=== PATIENT | male | born 1990 | race Two or more races ===

== ENCOUNTER 2018-03-18 17:11 | Inpatient (IN) | payer OTHER ==
[~2018-03-18] VITALS: Ht 172.7 cm; Wt 49.8 kg
[2018-03-18] MEDS ORDERED: SODIUM CHLORIDE 0.9% 500 ML IV ONE (17:56)
[2018-03-18] MEDS: methylPREDNISolone SOD SUCC 125 MG/2 ML VL IV ONE ×2 (18:24→18:29)
[2018-03-18] MEDS ORDERED: MORPHINE SULFATE 4 MG/ML SYR/VIAL IV PRN (18:30)
[2018-03-18] MEDS ORDERED: ACETAMINOPHEN 500 MG TAB PO PRN (18:30)
[2018-03-18] MEDS ORDERED: LORazepam 0.5 MG TAB PO PRN (18:30)
[2018-03-18] MEDS ORDERED: HYDROCORTISONE SOD SUCC 100 MG/2ML INJ VIAL IV ONE (18:30)
[2018-03-18] MEDS ORDERED: HYDROcodone-ACET 5/325MG TAB PO PRN (18:30)
[2018-03-18] MEDS ORDERED: NITROGLYCERIN 0.4 MG SL TAB SL PRN (18:30)
[2018-03-18] MEDS: metroNIDAZOLE 500MG/100ML 100 ML IV SCH (18:30)
[2018-03-18] MEDS ORDERED: TEMAZEPAM 15 MG CAP PO PRN (18:30)
[2018-03-18] MEDS: cefTRIAXone 1GM/50ML D5W 50 ML IV ONE ×2 (18:33→18:38)
[2018-03-18 18:51] LABS: Basophils # (auto) 0 uL; Eosinophils # (auto) 0 uL; Hemoglobin 9.6 g/dL (13.5-17.5); Lymphocytes # (auto) 0.4 uL; Monocytes # (auto) 0.4 uL; Neutrophils # (auto) 6.5 uL; White Blood Cell 7.4 10^3/uL (4.4-10.8)
[2018-03-18 18:52] LABS: Basophils % (auto) 0.1 % (0.0-2.0); Eosinophils % (auto) 0.1 % (0.0-7.0); Hematocrit 29.2 % (41.0-53.0); Lymphocytes % (auto) 6.1 % (10.0-50.0); Mean Corpuscular Hemoglobin 26.4 pg (28.0-32.0); Mean Corpuscular Hgb Conc. 32.9 g/dL (32.0-36.0); Mean Corpuscular Volume 80.1 fL (80.0-100.0); Monocytes % (auto) 5.9 % (0.0-12.0); Neutrophils % (auto) 87.8 % (37.0-80.0); Platelet Count (auto) 559 10^3/uL (140-450); Red Blood Cells 3.65 10^6/uL (4.5-5.90); Red Cell Distribution Width 15.3 % (11.8-14.3)
[2018-03-18 18:55] LABS: Alanine Aminotransferase 237 U/L (16-61); Albumin 1.6 g/dL (3.4-5.0); Anion Gap 7 (5-15); Aspartate Aminotransferase 85 U/L (15-37); Blood Urea Nitrogen 9 mg/dL (7-18); Calcium 7.1 mg/dL (8.5-10.1); Carbon Dioxide 27 mmol/L (21-32); Chloride 100 mmol/L (98-107); GFR African American 261 mL/min; GFR Non-African American 215 mL/min; Glucose 110 mg/dL (74-106); Magnesium 2.2 mg/dL (1.6-2.6); Potassium 4.7 mmol/L (3.5-5.1); Sodium 134 mmol/L (136-145)
[2018-03-18] MEDS ORDERED: IOHEXOL 300 MG/ML 100ML BOTTLE IJ ONE (18:55)
[2018-03-18] MEDS: SODIUM CHLORIDE 0.9% 1,000 ML IV SCH (18:59)
[2018-03-18 19:00] LABS: Alkaline Phosphatase 148 U/L (45-117); Bilirubin, Total 0.1 mg/dL (0.2-1.0); Total Protein 5.8 g/dL (6.4-8.2)
[2018-03-18] MEDS: FAMOTIDINE (10MG/ML) 2ML VL IV SCH (19:01)
[2018-03-18 19:10] LABS: CRP High Sensitivity 7.11 mg/dL (< 0.3)
[2018-03-18 19:11] LABS: Urine Bacteria NONE SEEN /hpf (None Seen); Urine Blood Negative /uL (Negative); Urine Mucus FEW (None Seen); Urine Specific Gravity 1.019 (1.001-1.035); Urine WBC <1 /hpf (0 - 3)
--- NOTE | 2018-03-18 19:45 | NUR ---
Telemetry admit from ER [facility] admitted to Telemetry unit after SBAR received. Patient oriented to MAG MONTEZ, primary RN, unit, room, bed, and unit policies regarding patient care and visiting hours. Patient now on continuous telemetry monitoring, tele box # 14 and telemetry reading on arrival to unit is SR in the 80's. Patient weighed by bedscale and encouraged to call if they need something. All questions and concerns addressed, patient verbalized understanding.
[2018-03-18 21:00] VITALS: BP 110/61
[2018-03-18 21:04] LABS: INR 1.03 (0.9-1.15); Partial Thromboplastin Time 27.8 sec (23.78-33.04)
[2018-03-18] MEDS: MORPHINE SULFATE 4 MG/ML SYR/VIAL IV PRN (21:16)
[2018-03-18 22:00] VITALS: BP 110/61
--- NOTE | 2018-03-18 22:00 | NUR ---
Patient refusing Flagyl medication Wants to talk to doctor first, patient reports abdominal pain and getting sick after taking it.
[2018-03-19 01:11] LABS: Hematocrit 25.9 % (41.0-53.0); Hemoglobin 8.7 g/dL (13.5-17.5)
[2018-03-19] MEDS: MORPHINE SULFATE 4 MG/ML SYR/VIAL IV PRN ×5 (01:39→21:02)
[2018-03-19 05:00] VITALS: BP 98/57
[2018-03-19] MEDS ORDERED: PRE1T PO (05:29)
[2018-03-19] MEDS ORDERED: MESA1.2T PO (05:29)
[2018-03-19] MEDS: SODIUM CHLORIDE 0.9% 1,000 ML IV SCH ×2 (05:32→16:38)
[2018-03-19] MEDS: metroNIDAZOLE 500MG/100ML 100 ML IV SCH ×5 (05:33→22:53)
[2018-03-19 05:53] LABS: Hematocrit 25.7 % (41.0-53.0); Hemoglobin 8.6 g/dL (13.5-17.5)
[2018-03-19] MEDS: FAMOTIDINE (10MG/ML) 2ML VL IV SCH ×2 (07:22→18:41)
[2018-03-19] MEDS: HYDROCORTISONE SOD SUCC 100 MG/2ML INJ VIAL IV SCH ×3 (07:23→23:21)
--- NOTE | 2018-03-19 07:45 | NUR ---
OPENING NOTE Assumed care of patient from NOC RNJj. Patient awake and alert with no S/S of distress/SOB or pain. Instructed on POC and to call for assist PRN, verbalized understanding. Bed in lowest, locked position with side rails up x2 and call light within reach. Will continue to monitor for changes Q1hr and PRN.
[2018-03-19] MEDS ORDERED: VANCOMYCIN PER PHARMACY 0 MG IV SCH (08:30)
[2018-03-19 09:00] VITALS: BP 107/62
[2018-03-19] MEDS ORDERED: VANCOMYCIN 1GM/250ML 250 ML IV SCH (09:00)
[2018-03-19] MEDS ORDERED: LEVOFLOXACIN 750MG 150 ML IV ONE (10:15)
[2018-03-19 12:30] LABS: Hemoglobin 8.4 g/dL (13.5-17.5)
[2018-03-19 12:32] LABS: Hematocrit 25.6 % (41.0-53.0)
[2018-03-19 13:00] VITALS: BP 105/70
[2018-03-19] MEDS ORDERED: TPN PER PHARMACY 0 ML IV SCH (13:30)
[2018-03-19 14:09] LABS: Phosphorus 3.7 mg/dL (2.5-4.90); Pre Albumin 8.8 mg/dL (20.0-40.0)
[2018-03-19 17:00] VITALS: BP 111/52
[2018-03-19] MEDS ORDERED: cefTRIAXone 1GM/50ML D5W 50 ML IV SCH (18:00)
--- NOTE | 2018-03-19 19:15 | NUR ---
CLOSING NOTE Endorsed care of patient to NOC RNJj.
--- NOTE | 2018-03-19 19:30 | NUR ---
Opening Shift Note Assumed care of patient, awake and alert X4. Resting in bed, respirations even and unlabored at this time. Reports still has some coughing. No S/S of distress/SOB on room air. Denies the need for pain medication at this time. Bed locked in lowest position call light within reach. Instructed on POC and to call for assist PRN, will continue to monitor for changes PRN.
--- NOTE | 2018-03-19 19:45 | NUR ---
Second IV insertion started for Clinimix order IV access obtained, via clean sterile technique by inserting 20 gauge catheter at right upper arm after 2 attempts. IV secured properly. No trauma to site. Patient tolerated well.
[2018-03-19] MEDS ORDERED: DEXTROSE (50%) 50ML SYRG IV SCH (20:00)
--- NOTE | 2018-03-19 20:40 | NUR ---
Incentive Spirometer, (IS) Provided IS to patient. Educated on reason, use and frequency of IS. Patient verbalized understanding. Return demonstration.
[2018-03-19] MEDS: CLINIMIX PER PHARMACY IV NR (20:44)
[2018-03-19] MEDS: ACCU-CHEK COMFORT CURVE STRIP VI SCH (20:44)
[2018-03-19] MEDS: InsuLIN REG 1unit/0.01ml Soln (100units/ml) SC SCH (20:45)
[2018-03-19 21:59] VITALS: BP 100/58
[2018-03-20] MEDS: ACCU-CHEK COMFORT CURVE STRIP VI SCH ×4 (00:03→18:37)
[2018-03-20] MEDS: SODIUM CHLORIDE 0.9% 1,000 ML IV SCH ×3 (00:04→21:32)
--- NOTE | 2018-03-20 04:37 | NUR ---
ROUNDS PATIENT SLEEPING IN BED RESPIRATIONS EVEN AND UNLABORED, NO S/S OF SOB OR DISTRESS. CONTINUOS TELE MONITOR REMAINS ON PATIENT. WILL CONTINUE TO MONITOR.
[2018-03-20 05:00] VITALS: BP 94/50
[2018-03-20] MEDS: metroNIDAZOLE 500MG/100ML 100 ML IV SCH (05:45)
[2018-03-20 06:07] LABS: Basophils # (auto) 0 uL; Basophils % (auto) 0.1 % (0.0-2.0); Eosinophils # (auto) 0 uL; Hematocrit 23.8 % (41.0-53.0); Hemoglobin 8.2 g/dL (13.5-17.5); Lymphocytes # (auto) 0.7 uL; Mean Corpuscular Hemoglobin 27.2 pg (28.0-32.0); Mean Corpuscular Hgb Conc. 34.4 g/dL (32.0-36.0); Monocytes # (auto) 0.3 uL; Monocytes % (auto) 4.2 % (0.0-12.0); Neutrophils # (auto) 5.9 uL; Neutrophils % (auto) 85.7 % (37.0-80.0); Platelet Count (auto) 444 10^3/uL (140-450); Red Blood Cells 3.01 10^6/uL (4.5-5.90); Red Cell Distribution Width 15.3 % (11.8-14.3); White Blood Cell 6.8 10^3/uL (4.4-10.8)
[2018-03-20 06:23] LABS: Albumin 1.3 g/dL (3.4-5.0); Calcium 7.3 mg/dL (8.5-10.1); Magnesium 1.9 mg/dL (1.6-2.6); Potassium 3.3 mmol/L (3.5-5.1)
[2018-03-20 06:26] LABS: BUN/Creatinine Ratio 9.5; Bilirubin, Total 0.2 mg/dL (0.2-1.0); Total Protein 4.5 g/dL (6.4-8.2)
[2018-03-20] MEDS: HYDROCORTISONE SOD SUCC 100 MG/2ML INJ VIAL IV SCH ×3 (06:54→21:32)
[2018-03-20] MEDS: InsuLIN REG 1unit/0.01ml Soln (100units/ml) SC SCH ×4 (06:54→18:37)
[2018-03-20] MEDS: FAMOTIDINE (10MG/ML) 2ML VL IV SCH ×2 (07:04→18:37)
--- NOTE | 2018-03-20 07:16 | NUR ---
Dr. Paez (GI) at bedside Orders received, read back and verified, PPD Also requesting medical records from [facility]
[2018-03-20 07:34] VITALS: BP 90/48
[2018-03-20] MEDS ORDERED: TUBERCULIN PPD 5 UNIT/0.1 ML ID ONE (07:45)
--- NOTE | 2018-03-20 10:06 | NUR ---
MEDICAL RECORDS Left message for [facility]'s medical record department in an effort to obtain fax #.
[2018-03-20] MEDS: LEVOFLOXACIN 500MG 100 ML IV SCH (10:40)
[2018-03-20 11:33] VITALS: BP 93/53
--- NOTE | 2018-03-20 12:42 | NUR ---
MEDICAL RECORDS Left another message for [facility]'s medical records department. Still awaiting call back.
--- NOTE | 2018-03-20 13:10 | NUR ---
TELE Tele D/C'd per order. Returned monitor to [facility].
--- NOTE | 2018-03-20 14:10 | NUR ---
FORM FAXED Medical records release form faxed to [facility].
--- NOTE | 2018-03-20 14:23 | NUR ---
PPD Tuberculin administered,left forearm, per order.
--- NOTE | 2018-03-20 14:37 | NUR ---
Nutrition consult/assessment Notes please see attached link for complete assessment Est. Needs based on IBW (70 kg): 0890-9166 kcal (25-30 kcal/kgBW), 70-98 gms pro (1.0-1.4 gms/kgBW severe hypoalb). Will continue to monitor pertinent labs and reassess nutrient need prn Addendum: 03/20/18 at [address] Amended: Links added.
[2018-03-20] MEDS ORDERED: POTASSIUM CHL 20MEQ/100ML 100 ML IV ONE (15:15)
[2018-03-20 16:40] VITALS: BP 102/63
[2018-03-20] MEDS: MORPHINE SULFATE 4 MG/ML SYR/VIAL IV PRN (18:38)
--- NOTE | 2018-03-20 19:15 | NUR ---
CLOSING NOTE Endorsed care of patient to NOC RNJj.
--- NOTE | 2018-03-20 19:30 | NUR ---
Opening Shift Note Assumed care of patient, awake and alert X4. Resting in bed, family at bedside. Respirations even and unlabored at this time. No S/S of distress/SOB on room air. Denies the need for pain medication at this time. Bed locked in lowest position call light within reach. Instructed on POC and to call for assist PRN, will continue to monitor for changes PRN.
[2018-03-20] MEDS ORDERED: PPN PER PHARMACY IV NR ×6 (20:00)
--- NOTE | 2018-03-20 20:00 | NUR ---
PATIENT REQUESTING TO TAKE SHOWER WRAPPED BOTH IV SITES, PROVIDED SHOWER CHAIR BATHROOM LINEN AND TOILETRIES. COMPLETE LINEN CHANGE.
--- NOTE | 2018-03-20 20:00 | NUR ---
RE: PPD not reaction noted at this time will continue to monitor. Administered on 03/20/18 at 1423 to left FA.
[2018-03-20 22:00] VITALS: BP 102/56
[2018-03-20] MEDS: CLINIMIX PER PHARMACY IV NR (22:27)
[2018-03-21] VITALS (7 sets, daily range): BP systolic 93–108; BP diastolic 49–67
[2018-03-21] MEDS: ACCU-CHEK COMFORT CURVE STRIP VI SCH ×5 (00:17→23:29)
[2018-03-21] MEDS: SODIUM CHLORIDE 0.9% 1,000 ML IV SCH ×2 (03:37→16:17)
[2018-03-21] MEDS: InsuLIN REG 1unit/0.01ml Soln (100units/ml) SC SCH ×5 (06:00→23:30)
[2018-03-21] MEDS: FAMOTIDINE (10MG/ML) 2ML VL IV SCH ×2 (06:16→18:13)
[2018-03-21] MEDS: HYDROCORTISONE SOD SUCC 100 MG/2ML INJ VIAL IV SCH ×3 (06:16→21:50)
[2018-03-21 06:49] LABS: Basophils # (auto) 0 uL; Eosinophils # (auto) 0 uL; Hemoglobin 7.9 g/dL (13.5-17.5); Lymphocytes # (auto) 0.8 uL; Lymphocytes % (auto) 11.8 % (10.0-50.0); Mean Corpuscular Volume 79.5 fL (80.0-100.0); Monocytes # (auto) 0.4 uL; Red Blood Cells 2.95 10^6/uL (4.5-5.90)
[2018-03-21 06:54] LABS: Eosinophils % (auto) 0.1 % (0.0-7.0); Hematocrit 23.5 % (41.0-53.0); Mean Corpuscular Hemoglobin 26.9 pg (28.0-32.0); Mean Corpuscular Hgb Conc. 33.8 g/dL (32.0-36.0); Monocytes % (auto) 6.1 % (0.0-12.0); Neutrophils # (auto) 5.4 uL; Platelet Count (auto) 409 10^3/uL (140-450); Red Cell Distribution Width 15.4 % (11.8-14.3); White Blood Cell 6.6 10^3/uL (4.4-10.8)
[2018-03-21 07:11] LABS: Albumin 1.2 g/dL (3.4-5.0); Calcium 7.5 mg/dL (8.5-10.1); Magnesium 2.1 mg/dL (1.6-2.6); Potassium 3.3 mmol/L (3.5-5.1)
[2018-03-21 07:14] LABS: BUN/Creatinine Ratio 18.8; Bilirubin, Total 0.1 mg/dL (0.2-1.0); Phosphorus 2.8 mg/dL (2.5-4.90); Total Protein 4.3 g/dL (6.4-8.2)
--- NOTE | 2018-03-21 07:30 | NUR ---
Opening Shift Note Assumed care of patient, awake and alert. No S/S of distress/SOB or pain. Instructed on POC and to call for assist PRN, will continue to monitor for changes Q1hr and PRN. Bed locked in lowest position with two side rails up and call light in reach.
[2018-03-21] MEDS: LEVOFLOXACIN 500MG 100 ML IV SCH (09:59)
[2018-03-21 10:02] LABS: Hepatitis B Surface Antibody Negative
[2018-03-21 10:28] LABS: Hepatitis A Total Antibody Positive
[2018-03-21] MEDS ORDERED: POTASSIUM CHL 20 Meq TABLET PO ONE (10:45)
[2018-03-21] MEDS: POTASSIUM CHL 20MEQ/100ML 100 ML IV SCH ×2 (12:13→15:03)
[2018-03-21 12:48] LABS: Hepatitis C Antibody Negative (Negative)
[2018-03-21 12:55] LABS: Hepatitis B Core Total AB Negative
[2018-03-21 13:03] LABS: Hepatitis B Surface Antigen Negative (Negative)
[2018-03-21 14:03] LABS: Hepatitis B Core IgM Negative
[2018-03-21 14:04] LABS: Hepatitis A Ab IgM Negative
[2018-03-21] MEDS: MORPHINE SULFATE 4 MG/ML SYR/VIAL IV PRN ×2 (15:43→21:00)
--- NOTE | 2018-03-21 17:18 | NUR ---
DR CHIQUITA WAYNE
--- NOTE | 2018-03-21 19:15 | NUR ---
Opening Shift Note Received report from Freda CONNORS. Assumed care of patient, awake and alert, family at bedside. No S/S of distress/SOB or pain. Instructed on POC and to call for assist PRN, will continue to monitor for changes Q1hr and PRN.
[2018-03-21] MEDS ORDERED: PPN PER PHARMACY IV NR ×8 (20:00)
[2018-03-22] MEDS: SODIUM CHLORIDE 0.9% 1,000 ML IV SCH ×2 (02:34→11:15)
[2018-03-22 05:25] VITALS: BP 94/48
[2018-03-22] MEDS: ACCU-CHEK COMFORT CURVE STRIP VI SCH ×4 (06:11→23:50)
[2018-03-22] MEDS: FAMOTIDINE (10MG/ML) 2ML VL IV SCH (06:11)
[2018-03-22] MEDS: InsuLIN REG 1unit/0.01ml Soln (100units/ml) SC SCH ×4 (06:11→23:51)
[2018-03-22 06:59] LABS: Albumin 1.2 g/dL (3.4-5.0); BUN/Creatinine Ratio 16.7; Calcium 7.1 mg/dL (8.5-10.1); Magnesium 2.3 mg/dL (1.6-2.6); Potassium 3.3 mmol/L (3.5-5.1)
[2018-03-22 07:01] LABS: Bilirubin, Total 0.1 mg/dL (0.2-1.0); Phosphorus 2.4 mg/dL (2.5-4.90); Total Protein 4.3 g/dL (6.4-8.2)
--- NOTE | 2018-03-22 07:15 | NUR ---
Opening Shift Note Report and assumed care of patient, asleep but easily arousable ,awake and alert. in bed,No S/S of distress/SOB or pain. Instructed on POC, call light within reach and to call for assist PRN, will continue to monitor for changes Q1hr and PRN.
[2018-03-22 08:00] VITALS: BP 101/65
[2018-03-22] MEDS ORDERED: POTASSIUM PHOSPHATE 44 MEQ in D5W 5% 250 ML IV ONE (08:15)
--- NOTE | 2018-03-22 10:05 | NUR ---
STOOL SPECIMEN FOR STOOL OB SENT TO LAB
[2018-03-22] MEDS: LEVOFLOXACIN 500MG 100 ML IV SCH (10:09)
[2018-03-22] MEDS: predniSONE 20 MG TAB PO SCH (10:10)
--- NOTE | 2018-03-22 10:30 | NUR ---
C/O PAIN TO RIGHT UPPER ARM IV SITE,IV DISCONTINUED STARTED g#20 TO LEFT ARM
--- NOTE | 2018-03-22 11:00 | NUR ---
MD VISIT DR. CHAUDHRY HERE TO SEE AND EXAMINED PATIENT,SPOKE TO PATIENT AND FAMILY RE PLAN OF CARE
[2018-03-22] MEDS: MORPHINE SULFATE 4 MG/ML SYR/VIAL IV PRN ×2 (11:55→20:14)
[2018-03-22 12:00] VITALS: BP 101/65
[2018-03-22 16:55] VITALS: BP 100/53
--- NOTE | 2018-03-22 17:00 | NUR ---
NO DISTRESS NO DISCOMFORT
--- NOTE | 2018-03-22 19:06 | NUR ---
REPORT GIVEN TO MIKEL LYNN SHIFT RN,STATUS UNCHANGED NO DISTRESS
--- NOTE | 2018-03-22 19:15 | NUR ---
Opening Shift Note Received report from Yael CONNORS. Assumed care of patient, awake and alert. No S/S of distress/SOB or pain. Instructed on POC and to call for assist PRN, will continue to monitor for changes Q1hr and PRN.
[2018-03-22 20:00] VITALS: BP 100/57
[2018-03-22] MEDS ORDERED: PPN PER PHARMACY IV NR ×9 (20:00)
[2018-03-22] MEDS: FAMOTIDINE 20 MG TAB PO SCH (21:52)
[2018-03-22 22:07] VITALS: BP 100/57
[2018-03-23] MEDS: MORPHINE SULFATE 4 MG/ML SYR/VIAL IV PRN ×3 (00:27→20:49)
[2018-03-23] MEDS: SODIUM CHLORIDE 0.9% 1,000 ML IV SCH ×2 (04:12→20:50)
[2018-03-23 04:30] VITALS: BP 95/54
--- NOTE | 2018-03-23 04:30 | NUR ---
Patient request for pain shot, RN explained that the blood pressure is low so will held the medication for now, patient verbalized understanding. Will continue care.
[2018-03-23] MEDS: ACCU-CHEK COMFORT CURVE STRIP VI SCH ×4 (05:59→23:49)
[2018-03-23] MEDS: InsuLIN REG 1unit/0.01ml Soln (100units/ml) SC SCH ×4 (05:59→23:50)
--- NOTE | 2018-03-23 06:30 | NUR ---
Per patient he had a total of 9 bowel movement overnight which is formed. Patient showed to the RN the 6th BM, RN noted blood in the stool but the rest is normal according to the patient.
[2018-03-23 07:04] LABS: Basophils # (auto) 0 uL; Eosinophils # (auto) 0 uL; Eosinophils % (auto) 0.1 % (0.0-7.0); Hematocrit 25.9 % (41.0-53.0); Hemoglobin 8.7 g/dL (13.5-17.5); Lymphocytes # (auto) 1.4 uL; Lymphocytes % (auto) 19.3 % (10.0-50.0); Mean Corpuscular Hgb Conc. 33.6 g/dL (32.0-36.0); Mean Corpuscular Volume 80.5 fL (80.0-100.0); Monocytes # (auto) 0.6 uL; Monocytes % (auto) 7.9 % (0.0-12.0); Neutrophils # (auto) 5.4 uL; Neutrophils % (auto) 72.7 % (37.0-80.0); Platelet Count (auto) 411 10^3/uL (140-450); Red Blood Cells 3.22 10^6/uL (4.5-5.90); Red Cell Distribution Width 15.5 % (11.8-14.3); White Blood Cell 7.4 10^3/uL (4.4-10.8)
--- NOTE | 2018-03-23 07:15 | NUR ---
Care endorsed to Paulina CONNORS.
[2018-03-23 07:20] LABS: Potassium 3.4 mmol/L (3.5-5.1)
[2018-03-23 07:28] LABS: Albumin 1.3 g/dL (3.4-5.0); BUN/Creatinine Ratio 22.2; Bilirubin, Total 0.2 mg/dL (0.2-1.0); Calcium 7.3 mg/dL (8.5-10.1); Magnesium 2.3 mg/dL (1.6-2.6); Phosphorus 2.2 mg/dL (2.5-4.90); Total Protein 4.6 g/dL (6.4-8.2)
[2018-03-23 08:48] VITALS: BP 101/63
[2018-03-23] MEDS: predniSONE 20 MG TAB PO SCH (09:05)
[2018-03-23] MEDS: LEVOFLOXACIN 500MG 100 ML IV SCH (09:05)
[2018-03-23] MEDS: FAMOTIDINE 20 MG TAB PO SCH ×2 (09:06→21:45)
[2018-03-23] MEDS ORDERED: POTASSIUM PHOSP 22MEQ(15MMOLE) in NS 100 ML IV ONE (10:00)
[2018-03-23] MEDS ORDERED: POTASSIUM CHL 20 Meq TABLET PO ONE (11:45)
[2018-03-23 12:26] VITALS: BP 100/61
--- NOTE | 2018-03-23 13:00 | NUR ---
Nutrition Follow-up Notes Wt.: 54.0 kg as of yesterday. Pt denies any discomfort when rounded this morning. 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 Pt's currently on Regular diet with adequate PO intake aeb 85% ave. consumed meals (x6) in last 2.5 days. Pt's also on PN support @ 67 ml/hr providing 756 kcal, 70 gms pro and 476 NPCs. Pt with inadequate PN support d/t mod initiation rate delivery of less concentrated formula aeb current PN infusion meets 36% to 43% of est caloric needs and 71% to 100% of est protein needs. Discussed importance/benefits of PN support r/t his medical condition and he verbalized understanding. Noted pt's to receive tonight another PPN @ same rate and nutrient concentration. Est. Needs based on IBW (70 kg): 7025-8531 kcal (25-30 kcal/kgBW), 70-98 gms pro (1.0-1.4 gms/kgBW severe hypoalb). Will continue to monitor pertinent labs and reassess nutrient need prn Labs: K 3.4 L, BUN 6 L, Cr 0.27 L, Ca 7.3 L, Phos 2.2 L, AST 38 H, ALT 147 H, Tpro 4.6 L, Alb 1.3 L; Prealb 8.8 L, Trig 60 wnl Skin: Luisito scale 19, low risk, skin intact per massage coordinator. GI: Pt had 2x BM this morning per massage coordinator. PES: Increased nutrient needs r/t altered GI functions aeb with GI bleed, on CLD and PN with wt loss Altered nutrition related lab values r/t current/chronic medical condition aeb hyperglycemia, seevre hypoalb Will continue to monitor PO intake, PN tolerance, skin status, pertinent labs and weight trend. F/u in 2 to 3 days. Rec.: 1.) If LFTs continue trending up, consider Soft Low Fat diet. 2.) Continue close supervision during meals. 3.) If pt's PO intake consistently adequate (>75%), consider gradual tapering down of PN support if medically appropriate. 4.) Refer pt to RD for further nutrition education and weight monitoring upon discharge. 5.) Continue current plan of care.
--- NOTE | 2018-03-23 14:20 | NUR ---
STEPHANIE PHELPS SPOKE WITH THE PHARMACIST, TO VERIFY IF THE PHARMACY CARRY IT, SAID THAT IT COMES ON A BOTTLE FORM, AND HE WILL SEND IT LATER ON.
[2018-03-23] MEDS: CHOLESTYRAMINE 4 GM POWDER GT SCH ×2 (14:33→22:55)
--- NOTE | 2018-03-23 14:34 | NUR ---
PT ON PAIN MANAGEMENT NEEDED, CONTINUE MONITORING.
[2018-03-23 17:17] VITALS: BP 93/57
--- NOTE | 2018-03-23 18:15 | NUR ---
LOOSE BM PT HAS A TOTAL OF 8, CONTINUE MONITORING.
--- NOTE | 2018-03-23 19:35 | NUR ---
Opening Shift Note Assumed care of patient, awake and alert oriented x4. No S/S of distress/SOB noted. Bed is in lowest locked position with bed rails up x2 and call light is within reach of the patient. Instructed on POC and to call for assist PRN.
[2018-03-23] MEDS ORDERED: PPN PER PHARMACY IV NR ×9 (20:00)
[2018-03-23 21:31] VITALS: BP 104/61
[2018-03-23] MEDS: MESALAMINE 4 GM/60 ML RC PR SCH (21:46)
--- NOTE | 2018-03-23 22:00 | NUR ---
Rowasa Enema; Patient refused: Patient refused Rowasa enema at this time. Educated patient about the use of the medication and educated on how it will help patients condition. Patient verbalized understanding but refused medication stating "I've had this medication before and it did not help me and made my GI bleed worse."
[2018-03-24] MEDS: MORPHINE SULFATE 4 MG/ML SYR/VIAL IV PRN ×2 (01:17→19:56)
[2018-03-24 04:53] VITALS: BP 99/53
[2018-03-24] MEDS: InsuLIN REG 1unit/0.01ml Soln (100units/ml) SC SCH (05:57)
[2018-03-24] MEDS: ACCU-CHEK COMFORT CURVE STRIP VI SCH (05:57)
--- NOTE | 2018-03-24 06:47 | NUR ---
Closing note: Patient as asleep in bed with no S/S of distress SOB noted. Breaths are even and unlabored. Bed is in lowest locked position with bed rails up x2 and call light is within reach of the patient. Will endorse care to day shift nurse.
[2018-03-24 07:20] LABS: Albumin 1.4 g/dL (3.4-5.0); Calcium 7.3 mg/dL (8.5-10.1); Magnesium 2.4 mg/dL (1.6-2.6); Potassium 4.2 mmol/L (3.5-5.1)
[2018-03-24 07:24] LABS: BUN/Creatinine Ratio 22.6; Bilirubin, Total 0.2 mg/dL (0.2-1.0); Phosphorus 2.4 mg/dL (2.5-4.90); Total Protein 5.1 g/dL (6.4-8.2)
--- NOTE | 2018-03-24 07:30 | NUR ---
Report received. Patient sitting up in bed. Patient is alert and oriented. Patient has no complaints of pain at this time. Call bryson louie. Will continue to monitor.
[2018-03-24 08:22] VITALS: BP 96/57
--- NOTE | 2018-03-24 09:30 | NUR ---
IV insertion IV access obtained, via clean sterile technique by inserting 20 gauge catheter at right forearm after 1 attempt. IV secured properly. No trauma to site. Patient tolerated procedure well.
[2018-03-24] MEDS: LEVOFLOXACIN 500MG 100 ML IV SCH (10:25)
[2018-03-24] MEDS: FAMOTIDINE 20 MG TAB PO SCH ×2 (10:25→23:27)
[2018-03-24] MEDS: predniSONE 20 MG TAB PO SCH (10:25)
[2018-03-24] MEDS: CHOLESTYRAMINE 4 GM POWDER GT SCH ×2 (10:54→23:00)
[2018-03-24 11:57] VITALS: BP 90/50
[2018-03-24] MEDS: SODIUM CHLORIDE 0.9% 1,000 ML IV SCH (13:15)
[2018-03-24 16:16] VITALS: BP 96/57
--- NOTE | 2018-03-24 16:51 | NUR ---
Dr. Paez in to see patient for GI follow up. Patient to have a colonoscopy in AM.
[2018-03-24] MEDS ORDERED: GOLYTELY 4L KIT PO ONE ×2 (17:00→18:00)
--- NOTE | 2018-03-24 19:30 | NUR ---
Opening Shift Note Assumed care of patient, awake and alert X4. Resting in bed, family at bedside. Respirations even and unlabored at this time. No S/S of distress/SOB on room air. Reports ABD 7/10 pain requesting pain medication. Patient scheduled for colonoscopy tomorrow. Golytely at bedside patient has only drank one cup. Educated patient on reason and need to drink golytely. Patient verbalized understanding. Bed locked in lowest position call light within reach. Instructed on POC and to call for assist PRN, will continue to monitor for changes PRN.
[2018-03-24] MEDS ORDERED: PPN PER PHARMACY IV NR ×9 (20:00)
[2018-03-24 21:26] VITALS: BP 102/45
--- NOTE | 2018-03-24 22:00 | NUR ---
Golytely drink, bowel prep Encouraged patient to continue to drink bowel prep for colonoscopy. Patient verbalized he would drink.
[2018-03-24] MEDS: MESALAMINE 4 GM/60 ML RC PR SCH (23:27)
--- NOTE | 2018-03-25 | NUR ---
Golytely drink, bowel prep Patient reports a few soft bowel movements. Encouraged patient to continue to drink bowel prep for colonoscopy. Patient verbalized he would drink.
[2018-03-25] MEDS: MORPHINE SULFATE 4 MG/ML SYR/VIAL IV PRN ×4 (02:10→21:37)
[2018-03-25 05:00] VITALS: BP 102/55
[2018-03-25] MEDS: SODIUM CHLORIDE 0.9% 1,000 ML IV SCH (06:19)
--- NOTE | 2018-03-25 07:00 | NUR ---
Opening Shift Note Assumed care of patient, awake and alert. No S/S of distress/SOB or pain. Instructed on POC and to call for assist PRN, will continue to monitor for changes Q1hr and PRN.
[2018-03-25 07:29] LABS: Albumin 1.7 g/dL (3.4-5.0); Bilirubin, Total 0.3 mg/dL (0.2-1.0); Magnesium 2.3 mg/dL (1.6-2.6); Phosphorus 3.3 mg/dL (2.5-4.90); Total Protein 5.7 g/dL (6.4-8.2)
--- NOTE | 2018-03-25 08:15 | NUR ---
: SPOKE WITH DR. RICHARD ORDER FOR NO COLONOSCOPY TODAY, AND CHANGE PO PREDNISONE TO 50MG SOLUMEDROL IV BID.
[2018-03-25 08:27] LABS: Basophils # (auto) 0 uL; Basophils % (auto) 0.1 % (0.0-2.0); Eosinophils # (auto) 0 uL; Eosinophils % (auto) 0.5 % (0.0-7.0); Monocytes # (auto) 0.7 uL
[2018-03-25 08:29] LABS: Hematocrit 30.1 % (41.0-53.0); Hemoglobin 9.8 g/dL (13.5-17.5); Lymphocytes # (auto) 1.9 uL; Lymphocytes % (auto) 26.1 % (10.0-50.0); Mean Corpuscular Hgb Conc. 32.7 g/dL (32.0-36.0); Mean Corpuscular Volume 79.6 fL (80.0-100.0); Monocytes % (auto) 9.6 % (0.0-12.0); Neutrophils # (auto) 4.5 uL; Neutrophils % (auto) 63.7 % (37.0-80.0); Red Blood Cells 3.78 10^6/uL (4.5-5.90); Red Cell Distribution Width 15.7 % (11.8-14.3); White Blood Cell 7.1 10^3/uL (4.4-10.8)
[2018-03-25 08:53] VITALS: BP 100/60
[2018-03-25 10:25] LABS: Platelet Count (auto) 481 10^3/uL (140-450)
[2018-03-25] MEDS: LEVOFLOXACIN 500 MG TAB PO SCH (10:25)
[2018-03-25] MEDS: FAMOTIDINE 20 MG TAB PO SCH ×2 (10:25→21:20)
[2018-03-25] MEDS: methylPREDNISolone SOD SUCC 125 MG/2 ML VL IV SCH ×2 (10:25→21:19)
[2018-03-25] MEDS: PROMETHAZINE HCL 25 MG/ML 1ML IV PRN ×2 (10:25→18:36)
[2018-03-25] MEDS: HYDROcodone-ACET 5/325MG TAB PO PRN ×2 (10:26→18:32)
[2018-03-25] MEDS: CHOLESTYRAMINE 4 GM POWDER GT SCH ×2 (11:59→23:00)
[2018-03-25 12:24] VITALS: BP 95/47
--- NOTE | 2018-03-25 12:40 | NUR ---
DR. TAPIA AT BEDSIDE DISCUSSING POC WITH PATIENT. DR. TAPIA WILL FOLLOW UP WITH DR. RICHARD TO DISCUSS PLANS FOR COLONOSCOPY
--- NOTE | 2018-03-25 12:41 | NUR ---
Nutrition Follow-up Notes Wt.: 54.0 kg Pt`s sleeping with no family by beside. pt is currently on clear liq diet for possible colonoscopy. pt with no distress noted. pt is now off PN support. pt with adequate PO intake of 75% x 4 per RN doc Est. Needs based on IBW (70 kg): 7663-7524 kcal (25-30 kcal/kgBW), 70-98 gms pro (1.0-1.4 gms/kgBW severe hypoalb). Will continue to monitor pertinent labs and reassess nutrient need prn Labs: CA 8.0 L, ALB 1.7 L, AST/ALT 154/135 H Skin: Luisito scale 20, low risk, skin intact per strategic planning consultant. GI: Pt had 9 BM yesterday (prep for colonoscopy) per strategic planning consultant. PES: Increased nutrient needs r/t altered GI functions aeb with GI bleed, on CLD and PN with wt loss Altered nutrition related lab values r/t current/chronic medical condition aeb hyperglycemia, seevre hypoalb Will continue to monitor PO intake, skin status, pertinent labs and weight trend. F/u in 2 to 3 days. Rec.: 1.) Advance diet as medically feasible. 2) consider to resume PN support if pt unable to suellen PO and continues to be on CLD. 3) Refer pt to RD for further nutrition education and weight monitoring upon discharge. 4) Consider ensure clear 1 carton tid if pt continues on cld. 5.) Continue current plan of care.
[2018-03-25 17:14] VITALS: BP 95/50
[2018-03-25] MEDS: MESALAMINE 400mg Delayed Release Cap PO SCH (21:20)
[2018-03-25 21:40] VITALS: BP 100/58
[2018-03-25] MEDS: MESALAMINE 4 GM/60 ML RC PR SCH (22:00)
[2018-03-26] MEDS: SODIUM CHLORIDE 0.9% 1,000 ML IV SCH ×2 (00:52→14:11)
[2018-03-26] MEDS: HYDROcodone-ACET 5/325MG TAB PO PRN ×2 (00:53→18:50)
[2018-03-26] MEDS: PROMETHAZINE HCL 25 MG/ML 1ML IV PRN ×4 (00:54→18:49)
[2018-03-26 04:37] VITALS: BP 90/48
[2018-03-26] MEDS: MESALAMINE 400mg Delayed Release Cap PO SCH ×3 (05:48→21:13)
[2018-03-26 06:07] LABS: Basophils # (auto) 0 uL; Basophils % (auto) 0.1 % (0.0-2.0); Eosinophils # (auto) 0 uL; Hematocrit 31.7 % (41.0-53.0); Hemoglobin 10.3 g/dL (13.5-17.5); Lymphocytes # (auto) 0.7 uL; Lymphocytes % (auto) 7.2 % (10.0-50.0); Mean Corpuscular Hgb Conc. 32.4 g/dL (32.0-36.0); Mean Corpuscular Volume 80.4 fL (80.0-100.0); Monocytes # (auto) 0.4 uL; Monocytes % (auto) 4.4 % (0.0-12.0); Neutrophils # (auto) 8.4 uL; Neutrophils % (auto) 88.3 % (37.0-80.0); Platelet Count (auto) 485 10^3/uL (140-450); Red Blood Cells 3.94 10^6/uL (4.5-5.90); Red Cell Distribution Width 15.8 % (11.8-14.3); White Blood Cell 9.5 10^3/uL (4.4-10.8)
[2018-03-26 08:53] VITALS: BP 95/53
[2018-03-26] MEDS: MORPHINE SULFATE 4 MG/ML SYR/VIAL IV PRN ×3 (09:23→23:02)
[2018-03-26] MEDS: methylPREDNISolone SOD SUCC 125 MG/2 ML VL IV SCH ×2 (10:42→21:14)
[2018-03-26] MEDS: FAMOTIDINE 20 MG TAB PO SCH ×2 (10:43→21:14)
[2018-03-26] MEDS: LEVOFLOXACIN 500 MG TAB PO SCH (10:43)
[2018-03-26] MEDS: CHOLESTYRAMINE 4 GM POWDER GT SCH ×2 (13:11→21:14)
[2018-03-26 13:18] VITALS: BP 104/55
[2018-03-26] MEDS ORDERED: LORazepam 0.5 MG TAB PO PRN (13:45)
[2018-03-26] MEDS ORDERED: TEMAZEPAM 15 MG CAP PO PRN (13:45)
[2018-03-26 17:24] VITALS: BP 92/50
--- NOTE | 2018-03-26 19:30 | NUR ---
received pt from day rn poc reviewed
[2018-03-26] MEDS: MESALAMINE 4 GM/60 ML RC PR SCH (21:20)
[2018-03-26 22:00] VITALS: BP 102/60
--- NOTE | 2018-03-27 03:21 | NUR ---
resting with eyes closed no c/o discomfort
[2018-03-27 04:52] VITALS: BP 100/50
[2018-03-27] MEDS: MESALAMINE 400mg Delayed Release Cap PO SCH ×3 (05:32→22:56)
--- NOTE | 2018-03-27 06:58 | NUR ---
REPORT GIVEN TO AM NURSE POC REVIEWED
[2018-03-27] MEDS: MORPHINE SULFATE 4 MG/ML SYR/VIAL IV PRN ×3 (07:35→22:57)
[2018-03-27] MEDS: SODIUM CHLORIDE 0.9% 1,000 ML IV SCH (07:55)
[2018-03-27 09:00] VITALS: BP 103/55
[2018-03-27] MEDS ORDERED: DICYCLOMINE HCL 10 MG CAP PO ONE (10:15)
[2018-03-27] MEDS: methylPREDNISolone SOD SUCC 125 MG/2 ML VL IV SCH (10:22)
[2018-03-27] MEDS: PROMETHAZINE HCL 25 MG/ML 1ML IV PRN ×3 (10:23→23:10)
[2018-03-27] MEDS: HYDROcodone-ACET 5/325MG TAB PO PRN ×2 (10:23→20:40)
[2018-03-27] MEDS: FAMOTIDINE 20 MG TAB PO SCH ×2 (10:23→22:57)
[2018-03-27] MEDS: LEVOFLOXACIN 500 MG TAB PO SCH (10:24)
[2018-03-27] MEDS: predniSONE 20 MG TAB PO SCH (10:24)
[2018-03-27] MEDS: CHOLESTYRAMINE 4 GM POWDER GT SCH ×2 (11:00→23:11)
[2018-03-27 13:00] VITALS: BP 99/59
--- NOTE | 2018-03-27 15:58 | NUR ---
Nutrition Follow-up Notes Wt.: 49.8 kg based on bed scale as of yesterday. Pt's asleep, no immediate family member at beside during rounds this morning. Pt's no signs of distress noted earlier, currently on Regular Low Fiber/Residue diet with adequate PO intake aeb 85% ave. consumed meals (x6) in last 2.5 days. Est. Needs based on IBW (70 kg): 7197-8840 kcal (25-30 kcal/kgBW), 70-98 gms pro (1.0-1.4 gms/kgBW severe hypoalb). Will continue to monitor pertinent labs and reassess nutrient need prn Labs: Gluc 72 L, Na 134 L, Cr 0.15 L, Ca 8.0 L, AST 154 H, ALT 135 H, Tpro 5.7 L, Alb 1.7 L, C react prot 4.40 H Skin: Luisito scale 22, low risk, skin intact per highway truck driver. GI: Pt had 2x BM this morning per highway truck driver. PES: Increased nutrient needs r/t altered GI functions aeb with GI bleed, on CLD and PN with wt loss Altered nutrition related lab values r/t current/chronic medical condition aeb hyperglycemia, severe hypoalb Will continue to monitor PO intake, skin status, pertinent labs and weight trend. F/u in 3 to 5 days. Rec.: 1.) If LFTs continue trending up, consider Soft Low Fat in addition to current therapeutic diet with Ensure Clear 1 carton QID and Prostat w pkt BID. 2.) Continue close supervision during meals. 3.) Refer to RD for further nutrition educ. and weight monitoring upon discharge. 4.) Continue current plan of care.
[2018-03-27 17:00] VITALS: BP 99/58
--- NOTE | 2018-03-27 19:30 | NUR ---
REPORT RECEIVED FROM DAY RN POC REVIEWED
[2018-03-27 22:00] VITALS: BP 100/64
[2018-03-27] MEDS: MESALAMINE 4 GM/60 ML RC PR SCH (22:00)
[2018-03-27] MEDS: DICYCLOMINE HCL 10 MG CAP PO SCH (22:57)
--- NOTE | 2018-03-28 04:25 | NUR ---
PT STATED THAT HE HAD AT LEAST 3 LOOSE BM 'S
[2018-03-28 05:00] VITALS: BP 105/56
[2018-03-28] MEDS: MESALAMINE 400mg Delayed Release Cap PO SCH ×2 (06:09→14:00)
[2018-03-28] MEDS: SODIUM CHLORIDE 0.9% 1,000 ML IV SCH (06:13)
[2018-03-28 06:32] LABS: Basophils # (auto) 0 uL; Eosinophils # (auto) 0 uL; Eosinophils % (auto) 0.2 % (0.0-7.0); Hemoglobin 9.2 g/dL (13.5-17.5); Monocytes # (auto) 0.9 uL; Nucleated Red Blood Cells % 0.1 %; Red Cell Distribution Width 15.5 % (11.8-14.3)
[2018-03-28 06:35] LABS: Hematocrit 27.5 % (41.0-53.0); Lymphocytes # (auto) 1.4 uL; Lymphocytes % (auto) 14.5 % (10.0-50.0); Mean Corpuscular Hemoglobin 26.7 pg (28.0-32.0); Mean Corpuscular Hgb Conc. 33.4 g/dL (32.0-36.0); Mean Corpuscular Volume 79.7 fL (80.0-100.0); Monocytes % (auto) 8.9 % (0.0-12.0); Neutrophils # (auto) 7.3 uL; Neutrophils % (auto) 76.4 % (37.0-80.0); Platelet Count (auto) 368 10^3/uL (140-450); Red Blood Cells 3.45 10^6/uL (4.5-5.90); White Blood Cell 9.6 10^3/uL (4.4-10.8)
[2018-03-28 06:43] LABS: Albumin 1.5 g/dL (3.4-5.0); Calcium 7.3 mg/dL (8.5-10.1); Magnesium 2.1 mg/dL (1.6-2.6); Potassium 3.6 mmol/L (3.5-5.1)
[2018-03-28 06:45] LABS: Bilirubin, Total 0.3 mg/dL (0.2-1.0); Total Protein 5.1 g/dL (6.4-8.2)
--- NOTE | 2018-03-28 06:55 | NUR ---
RESTING WITH EYES CLOSED NO C/O PAIN,
--- NOTE | 2018-03-28 06:56 | NUR ---
REPORT GIVEN TO AM NURSE POC REVIEWED
[2018-03-28 08:37] VITALS: BP 105/60
[2018-03-28] MEDS: PROMETHAZINE HCL 25 MG/ML 1ML IV PRN (08:59)
[2018-03-28] MEDS: MORPHINE SULFATE 4 MG/ML SYR/VIAL IV PRN (08:59)
[2018-03-28] MEDS: predniSONE 20 MG TAB PO SCH (09:51)
[2018-03-28] MEDS: DICYCLOMINE HCL 10 MG CAP PO SCH (09:51)
[2018-03-28] MEDS: FAMOTIDINE 20 MG TAB PO SCH (09:52)
[2018-03-28] MEDS: LEVOFLOXACIN 500 MG TAB PO SCH (09:52)
[2018-03-28] MEDS: CHOLESTYRAMINE 4 GM POWDER GT SCH (11:00)
--- NOTE | 2018-03-28 12:30 | NUR ---
Dr. Hernandez at bedside New orders to discharge the patient with prescriptions recommended by Dr Kearney. at bedside and aware.
[2018-03-28 12:51] VITALS: BP 99/60
[2018-03-28] MEDS: HYDROcodone-ACET 5/325MG TAB PO PRN (14:04)
--- NOTE | 2018-03-28 16:07 | NUR ---
DISCHARGE NOTE Discharge instructions given as ordered. Encourage to follow up with PMD as instructed. All questions and concerns addressed. Patient verbalized understanding. Medication reconciliation form completed and copy given to patient. IV removed with catheter intact, pressure dressing applied. Patient taken to vehicle via wheelchair with all personal belongings, accompanied by staff and family member. No distress noted at time of departure.
== END 2018-03-28 16:00 | disposition home or self-care (01) | DRG 385 ==
LOC: ER 17:14 → TELE 18:21 → TELE-EAST 19:33 → EAST 03-20 21:53
PROVIDERS: ADMIT Internal Medicine; ATTEND Internal Medicine
DX: K51.911 Ulcerative colitis, unspecified with rectal bleeding (principal); E43 Unspecified severe protein-calorie malnutrition; J18.1 Lobar pneumonia, unspecified organism; Z68.1 Body mass index [BMI] 19.9 or less, adult; D64.9 Anemia, unspecified; E86.0 Dehydration; K63.89 Other specified diseases of intestine; R16.0 Hepatomegaly, not elsewhere classified; Z88.8 Allergy status to other drugs, medicaments and biological substances; Z91.018 Allergy to other foods; R20.0 Anesthesia of skin; R79.89 Other specified abnormal findings of blood chemistry
CPT/HCPCS: 36415; 71045; 71046; 72148; 74177; 76705; 80053; 81001; 82040; 82150; 82270; 82962; 83690; 83735; 84100; 84478; 84484; 85014; 85018; 85025; 85045; 85610; 85652; 85730; 86141; 86704; 86705; 86706; 86708; 86709; 86803; 86850; 86900; 86901; 87081; 87340; 87493; 94761; A6257; G0378; J0696; J1815; J1956; J3480; J3490; J7060

== ENCOUNTER → 2018-04-01 | Outpatient (CLI) | payer OTHER ==
[~2018-04-01] MED LIST: MESA1.2T PO; PRE1T PO
[2018-04-01 15:55] LABS: Basophils # (auto) 0 uL; Eosinophils # (auto) 0 uL; Eosinophils % (auto) 0.1 % (0.0-7.0); Hematocrit 27.9 % (41.0-53.0); Hemoglobin 9.1 g/dL (13.5-17.5); Lymphocytes # (auto) 0.4 uL; Neutrophils # (auto) 7.5 uL; Neutrophils % (auto) 87.7 % (37.0-80.0)
[2018-04-01 15:57] LABS: Lymphocytes % (auto) 4.6 % (10.0-50.0); Mean Corpuscular Hemoglobin 26.3 pg (28.0-32.0); Mean Corpuscular Hgb Conc. 32.7 g/dL (32.0-36.0); Mean Corpuscular Volume 80.3 fL (80.0-100.0); Monocytes # (auto) 0.7 uL; Monocytes % (auto) 7.6 % (0.0-12.0); Platelet Count (auto) 423 10^3/uL (140-450); Red Blood Cells 3.47 10^6/uL (4.5-5.90); Red Cell Distribution Width 16.3 % (11.8-14.3); White Blood Cell 8.6 10^3/uL (4.4-10.8)
[2018-04-01 17:02] LABS: Albumin 1.7 g/dL (3.4-5.0); Calcium 7.5 mg/dL (8.5-10.1); Potassium 4.7 mmol/L (3.5-5.1)
[2018-04-01 17:05] LABS: BUN/Creatinine Ratio 23.7; Bilirubin, Total 0.1 mg/dL (0.2-1.0); Total Protein 5.7 g/dL (6.4-8.2)
== END | disposition home or self-care (01) ==
LOC: LAB 15:34
PROVIDERS: ATTEND Internal Medicine
DX: K51.90 Ulcerative colitis, unspecified, without complications (principal); R94.5 Abnormal results of liver function studies
CPT/HCPCS: 36415; 80053; 85025

== ENCOUNTER 2018-04-04 09:13 | Inpatient (IN) | payer OTHER ==
[~2018-04-04] VITALS: Ht 172.7 cm; Wt 52.0 kg
[2018-04-04 09:51] LABS: Basophils # (auto) 0 uL; Eosinophils # (auto) 0 uL; Hemoglobin 9.8 g/dL (13.5-17.5); Lymphocytes # (auto) 1.1 uL; Monocytes # (auto) 0.5 uL; White Blood Cell 7.6 10^3/uL (4.4-10.8)
[2018-04-04 09:54] LABS: Eosinophils % (auto) 0.5 % (0.0-7.0); Hematocrit 30.1 % (41.0-53.0); Lymphocytes % (auto) 14.2 % (10.0-50.0); Mean Corpuscular Hemoglobin 26.1 pg (28.0-32.0); Mean Corpuscular Hgb Conc. 32.4 g/dL (32.0-36.0); Mean Corpuscular Volume 80.7 fL (80.0-100.0); Monocytes % (auto) 7.2 % (0.0-12.0); Neutrophils # (auto) 5.9 uL; Neutrophils % (auto) 78.1 % (37.0-80.0); Platelet Count (auto) 434 10^3/uL (140-450); Red Blood Cells 3.74 10^6/uL (4.5-5.90); Red Cell Distribution Width 16.9 % (11.8-14.3)
[2018-04-04] MEDS ORDERED: SODIUM CHLORIDE 0.9% 1,000 ML IV ONE ×3 (09:57→11:00)
[2018-04-04] MEDS ORDERED: methylPREDNISolone SOD SUCC 125 MG/2 ML VL IV ONE (10:00)
[2018-04-04 10:12] LABS: Albumin 1.7 g/dL (3.4-5.0); Calcium 8.3 mg/dL (8.5-10.1); Potassium 3.6 mmol/L (3.5-5.1)
[2018-04-04 10:14] LABS: Bilirubin, Total 0.3 mg/dL (0.2-1.0); Total Protein 5.8 g/dL (6.4-8.2)
[2018-04-04 10:29] LABS: INR 0.99 (0.9-1.15); Partial Thromboplastin Time 27.1 sec (23.78-33.04); Prothrombin Time 10.6 sec (9.27-12.13)
[2018-04-04] MEDS ORDERED: NITROGLYCERIN 0.4 MG SL TAB SL PRN (12:45)
[2018-04-04] MEDS ORDERED: SODIUM CHLORIDE 0.9% 1,000 ML IV SCH (12:45)
[2018-04-04] MEDS ORDERED: MORPHINE SULFATE 4 MG/ML SYR/VIAL IV PRN (12:45)
[2018-04-04 14:20] LABS: Urine Bacteria NONE SEEN /hpf (None Seen); Urine Blood Negative /uL (Negative); Urine Specific Gravity 1.015 (1.001-1.035); Urine WBC 1 /hpf (0 - 3)
[2018-04-04] MEDS: MESALAMINE 400mg Delayed Release Cap PO SCH ×2 (15:00→21:43)
[2018-04-04] MEDS: methylPREDNISolone SOD SUCC 40 MG/ML VL IV SCH ×2 (15:00→21:41)
[2018-04-04] MEDS: HYDROcodone-ACET 5/325MG TAB PO PRN ×2 (15:15→21:43)
[2018-04-04] MEDS ORDERED: GOLYTELY 4L KIT PO ONE (16:00)
[2018-04-04] MEDS: SODIUM CHLORIDE 0.9% 1,000 ML IV SCH (16:48)
[2018-04-04] MEDS: MORPHINE SULFATE 4 MG/ML SYR/VIAL IV PRN ×2 (16:55→20:01)
[2018-04-04 20:07] VITALS: BP 119/57
--- NOTE | 2018-04-04 20:07 | NUR ---
Telemetry admit from [facility] admitted to Telemetry unit after SBAR received. Patient oriented to ADRIÁN CEVALLOS RN primary RN, unit, room, bed, and unit policies regarding patient care and visiting hours. Patient now on continuous telemetry monitoring, tele box # 9 and telemetry reading on arrival to unit is Sinus Rhythm at 65BPM. Patient placed on bedside oxygen, weighed by bedscale and encouraged to call if they need something. All questions and concerns addressed, patient verbalized understanding. Note: Patient is alert oriented X4, no distress noted but weak due to non-stop diarrhia. Patient states he had at least 10 bowel movements in the last 24 hours. Patient denies pain but pressure to abdomen is present. Patient has IV to ARTIE 18 G running at 100ml/hour NS. Bedside commode provided. Bed placed in lowest position, bed alarm turned on and call light within reach.
[2018-04-05] MEDS ORDERED: PRE1T PO (00:25)
[2018-04-05] MEDS ORDERED: HYDR-4683 PO (00:25)
[2018-04-05] MEDS ORDERED: MESA1.2T PO (00:25)
[2018-04-05] MEDS: MORPHINE SULFATE 4 MG/ML SYR/VIAL IV PRN ×3 (01:21→14:06)
[2018-04-05 05:00] VITALS: BP 109/62
--- NOTE | 2018-04-05 05:15 | NUR ---
MRSA SWAB SPECIMEN SENT TO LAB
--- NOTE | 2018-04-05 05:24 | NUR ---
Patient signed the consent for Colonoscopy procedure today. Patient is resting in bed, alert and awake, no distress noted and patient denies pain at this time.
[2018-04-05] MEDS: SODIUM CHLORIDE 0.9% 1,000 ML IV SCH ×3 (05:41→23:19)
[2018-04-05] MEDS: methylPREDNISolone SOD SUCC 40 MG/ML VL IV SCH ×3 (05:41→22:28)
[2018-04-05] MEDS: MESALAMINE 400mg Delayed Release Cap PO SCH ×3 (05:41→22:28)
[2018-04-05 05:51] LABS: Basophils # (auto) 0 uL; Eosinophils # (auto) 0 uL; Hemoglobin 8.4 g/dL (13.5-17.5); Lymphocytes # (auto) 0.8 uL; Monocytes # (auto) 0.4 uL; Monocytes % (auto) 5.9 % (0.0-12.0); Neutrophils # (auto) 6.1 uL
[2018-04-05 06:00] LABS: Hematocrit 25.6 % (41.0-53.0); Lymphocytes % (auto) 10.3 % (10.0-50.0); Mean Corpuscular Hemoglobin 26.4 pg (28.0-32.0); Mean Corpuscular Hgb Conc. 32.8 g/dL (32.0-36.0); Mean Corpuscular Volume 80.5 fL (80.0-100.0); Neutrophils % (auto) 83.8 % (37.0-80.0); Platelet Count (auto) 356 10^3/uL (140-450); Red Blood Cells 3.18 10^6/uL (4.5-5.90); White Blood Cell 7.3 10^3/uL (4.4-10.8)
[2018-04-05] MEDS ORDERED: GOLYTELY 4L KIT PO ONE (06:00)
[2018-04-05 06:20] LABS: Potassium 3.6 mmol/L (3.5-5.1)
[2018-04-05 06:32] LABS: Albumin 1.4 g/dL (3.4-5.0); Bilirubin, Total 0.2 mg/dL (0.2-1.0); Calcium 7.7 mg/dL (8.5-10.1); Total Protein 4.9 g/dL (6.4-8.2)
--- NOTE | 2018-04-05 07:50 | NUR ---
Opening Shift Note Assumed care of patient, patient awake and alert sitting upright in bed. Patient is on room air with even and unlabored respirations. No S/S of distress/SOB or pain at this time. Bed is in lowest position, wheels are locked, side rails up x2, and call light is within reach. Patient encourage to keep trying to drink rest of bowel prep. Instructed on POC and to call for assist PRN, will continue to monitor for changes Q1hr and PRN.
[2018-04-05] MEDS ORDERED: SODIUM CHLORIDE LOCK 10 ML ONE (08:42)
[2018-04-05] MEDS ORDERED: diphenhdrAMINE HCL 50 MG/1 ML VL ONE (08:42)
[2018-04-05 09:00] VITALS: BP 130/69
[2018-04-05] MEDS: HYDROcodone-ACET 5/325MG TAB PO PRN ×2 (09:53→16:51)
--- NOTE | 2018-04-05 10:15 | NUR ---
SPOKE WITH DR. WHYTE SPOKE TO DR. WHYTE RE: COLONOSCOPY FOR PT THIS AFTERNOON. INFORMED THAT PATIENT ONLY HAD CONSUMED ABOUT 2/3 OF THE TOTAL BOWEL PREP AND STOOL LIQUID AND IS STILL SLIGHTLY BROWN. RECEIVED TELEPHONE ORDER FOR 2 TAP WATER ENEMAS 15 MINUTES APART. ORDER PLACED INTO [employer], [facility] OUT ORDER.
--- NOTE | 2018-04-05 10:45 | NUR ---
FIRST TAP WATER ENEMA PERFORMED FIRST OF 2 TAP WATER ENEMAS ADMINISTERED. PATIENT PLACED IN LATERAL GIFFORD POSITION. 500 ML OF WATER TAP WATER ADMINISTER BY GRAVITY. PATIENT TOLERATED WELL. BED SIDE COMMODE NEXT TO BED PER PATIENT REQUEST. PATIENT HAD A BOWEL MOVEMENT IMMEDIATELY, CLEAR BROWN IN COLOR. WILL CONTINUE TO MONITOR Q1H AND PRN.
--- NOTE | 2018-04-05 11:05 | NUR ---
SECOND TAP WATER ENEMA PERFORMED SECOND TAP WATER ENEMA ADMINISTERED. PATIENT PLACED IN LATERAL GIFFORD POSITION AGAIN. 500 ML OF WATER TAP WATER ADMINISTER BY GRAVITY. PATIENT TOLERATED WELL. BED SIDE COMMODE STILL IN PLACE AND PATIENT SELF TRANSFERRED TO COMMODE IMMEDIATELY AFTER ADMINISTRATION. PATIENT HAD A BOWEL MOVEMENT IMMEDIATELY, CLEAR LIGHT BROWN IN COLOR. WILL CONTINUE TO MONITOR Q1H AND PRN.
--- NOTE | 2018-04-05 11:40 | NUR ---
PATIENT TAKEN DOWN TO PRE-OP FOR PROCEDURE BY BED. PATIENT ALERT AND AWAKE WITH EVEN AND UNLABORED RESPIRATIONS. NO S/S OF DISTRESS/SOB AT TIME OF TRANSFER.
[2018-04-05] MEDS: fentaNYL CITRATE 100 MCG/2 ML VL ONE ×2 (12:50→12:53)
[2018-04-05 13:00] VITALS: BP 111/58
--- NOTE | 2018-04-05 13:30 | NUR ---
PATIENT DONE WITH PROCEDURE. RECEIVED REPORT. PATIENT WILL BE RETURNING TO THE FLOOR SHORTLY. WILL MONITOR WHEN PATIENT ARRIVES.
--- NOTE | 2018-04-05 13:40 | NUR ---
PATIENT UP FROM PACU, PATIENT IS ALERT AND ORIENTATED WITH EVEN AND UNLABORED RESPIRATIONS. PATIENT IS LAYING IN BED WITH AT BEDSIDE. BED IS IN LOWEST POSITION, WHEELS ARE LOCKED, SIDE RAILS UP X2, AND CALL LIGHT IS WITHIN REACH. WILL CONTINUE TO MONITOR Q1H AND PRN.
[2018-04-05] MEDS ORDERED: MIDAZOLAM HCL 5 MG/ML-1ML VIAL ONE (15:28)
--- NOTE | 2018-04-05 16:30 | NUR ---
PATIENT CALLED PATIENT CALLED RE: PAIN. STOMACH PAIN 9/10, WILL GIVE NORCO. WILL CONTINUE TO MONITOR Q1H AND PRN.
[2018-04-05 17:00] VITALS: BP 105/58
--- NOTE | 2018-04-05 17:40 | NUR ---
PATIENT CALLED AGAIN RE: PAIN PATIENT CALLED AGAIN STATING THE PAIN IS STILL VERY UNBEARABLE. NOW STOMACH PAIN 10/10. PATIENT ON SIDE OF BED, BENDING OVER IN CROUCHED POSITION. PCTS DOCTOR PAGED. WILL AWAIT RETURN CALL.
--- NOTE | 2018-04-05 17:45 | NUR ---
RECEIVED RETURN CALL DR. KATE SCHULTZ TIMBER SURVEYOR RECEIVED RETURN CALL FROM MEDIA ASSOCIATE HOSPITALIST. UPDATED DOCTOR ON PATIENT'S CONDITION AND INCREASED AMOUNT OF PAIN. RECEIVED TELEPHONE ORDER FOR DILAUDID 0.5 MG Q4 AND TO D/C MORPHINE. ORDERS CARRIED OUT IN [facility]. WILL GIVE PATIENT NEW MEDICATION.
[2018-04-05] MEDS: HYDROmorphone HCL 2 MG/ML VL IV PRN ×2 (18:04→23:03)
--- NOTE | 2018-04-05 19:09 | NUR ---
CLOSING NOTE PATIENT IS ALERT AND AWAKE LAYING IN BED. NO S/S OF DISTRESS/SOB NOTED AT THIS TIME. CARE ENDORSED TO ADRIÁN LYNN RN.
--- NOTE | 2018-04-05 19:10 | NUR ---
Opening Shift Note Received report from meliton Reardon RN. Assumed care of patient, patient awake and alert lying in bed. Patient is on room air with even and unlabored respirations. No S/S of distress/SOB or pain at this time. Bed is in lowest position, wheels are locked, side rails up x2, and call light is within reach. Instructed on POC and to call for assist PRN, will continue to monitor for changes Q1hr and PRN.
[2018-04-05 22:00] VITALS: BP 100/53
[2018-04-06] MEDS: HYDROcodone-ACET 5/325MG TAB PO PRN ×2 (04:28→14:37)
[2018-04-06 05:00] VITALS: BP 119/76
[2018-04-06] MEDS: methylPREDNISolone SOD SUCC 40 MG/ML VL IV SCH ×3 (06:02→22:27)
[2018-04-06] MEDS: MESALAMINE 400mg Delayed Release Cap PO SCH ×3 (06:02→22:28)
[2018-04-06 06:12] LABS: Basophils # (auto) 0 uL; Basophils % (auto) 0.1 % (0.0-2.0); Eosinophils # (auto) 0 uL; Lymphocytes # (auto) 0.5 uL; Monocytes # (auto) 0.3 uL
[2018-04-06 06:15] LABS: Hematocrit 30.7 % (41.0-53.0); Hemoglobin 10.2 g/dL (13.5-17.5); Lymphocytes % (auto) 7.3 % (10.0-50.0); Mean Corpuscular Hemoglobin 26.7 pg (28.0-32.0); Mean Corpuscular Hgb Conc. 33.4 g/dL (32.0-36.0); Mean Corpuscular Volume 79.9 fL (80.0-100.0); Monocytes % (auto) 5.2 % (0.0-12.0); Neutrophils # (auto) 5.6 uL; Neutrophils % (auto) 87.4 % (37.0-80.0); Platelet Count (auto) 444 10^3/uL (140-450); Red Blood Cells 3.84 10^6/uL (4.5-5.90); Red Cell Distribution Width 16.8 % (11.8-14.3); White Blood Cell 6.4 10^3/uL (4.4-10.8)
[2018-04-06 06:25] LABS: Albumin 1.6 g/dL (3.4-5.0); Calcium 7.5 mg/dL (8.5-10.1); Potassium 3.9 mmol/L (3.5-5.1)
[2018-04-06 06:28] LABS: Bilirubin, Total 0.2 mg/dL (0.2-1.0); Total Protein 5.7 g/dL (6.4-8.2)
--- NOTE | 2018-04-06 06:39 | NUR ---
PATIENT IS RESTING IN BED WITH EYES CLOSED, NO DISTRESS NOTED AND PATIENT DENIES PAIN.
--- NOTE | 2018-04-06 07:35 | NUR ---
Opening Shift Note Assumed care of patient, patient awake and alert. Patient is on room air with even and unlabored respirations. No S/S of distress/SOB at this time. Pain is 5/10 in abdomen. Pain mediation offered and declined at this time. Patient educated to call if pain gets worse. Instructed on POC and to call for assist PRN, will continue to monitor for changes Q1hr and PRN.
[2018-04-06 08:29] VITALS: BP 105/61
[2018-04-06] MEDS: HYDROmorphone HCL 2 MG/ML VL IV PRN (09:40)
[2018-04-06] MEDS: SODIUM CHLORIDE 0.9% 1,000 ML IV SCH ×3 (10:00→22:29)
--- NOTE | 2018-04-06 12:00 | NUR ---
Rounds Patient awake and alert. No S/S of distress/SOB. Family at bedside. Will continue to monitor changes q1hr and PRN.
--- NOTE | 2018-04-06 12:20 | NUR ---
DR. TAPIA AT [facility]
[2018-04-06 12:33] VITALS: BP 109/57
--- NOTE | 2018-04-06 13:15 | NUR ---
DR. WHYTE AT BEDSIDE. NO NEW ORDERS RECEIVED. WILL CONTINUE TO MONITOR Q1H AND PRN.
--- NOTE | 2018-04-06 15:05 | NUR ---
Nutrition Consult/assessment Notes Please see attached link for complete assessment Est. Needs IBW [id number] kcal (25-30 kcal/kgBW), 70-91 gms pro (1.0-1.3 gms/kgBW r/t severe hypoalb). Will continue to monitor pertinent labs and reassess nutrient needs prn. Addendum: 04/06/18 at [address] Amended: Links added.
[2018-04-06 16:43] VITALS: BP 112/66
[2018-04-06] MEDS: MORPHINE SULFATE 4 MG/ML SYR/VIAL IV PRN ×2 (18:03→22:28)
--- NOTE | 2018-04-06 19:30 | NUR ---
Opening Shift Note Assumed care of patient, awake and alert x4. Respirations even and unlabored, lungs clear to auscultation. No S/S of distress or SOB on room air. Denies need for pain medication at this time pain reported 5/10. Bed locked in lowest position call light within reach. Instructed on POC and to call for assist PRN, will continue to monitor for changes Q1hr and PRN.
--- NOTE | 2018-04-06 21:45 | NUR ---
Patient moved to room 282, all personal belonging taken with patient.
[2018-04-06 22:00] VITALS: BP 110/59
[2018-04-07] MEDS: HYDROcodone-ACET 5/325MG TAB PO PRN ×2 (01:10→18:07)
--- NOTE | 2018-04-07 03:00 | NUR ---
ROUNDS PATIENT SLEEPING IN BED, RESPIRATIONS EVEN AND UNLABORED. NO S/S OF PAIN OR DISTRESS. CONTINUOUS TELEMETRY MONITORING REMAINS INTACT. CALL LIGHT WITHIN REACH. WILL CONTINUE TO MONITOR.
[2018-04-07 05:50] VITALS: BP 112/65
[2018-04-07] MEDS: methylPREDNISolone SOD SUCC 40 MG/ML VL IV SCH ×3 (06:11→22:40)
[2018-04-07] MEDS: MESALAMINE 400mg Delayed Release Cap PO SCH ×3 (06:11→22:41)
[2018-04-07] MEDS: MORPHINE SULFATE 4 MG/ML SYR/VIAL IV PRN ×4 (06:11→23:51)
--- NOTE | 2018-04-07 07:20 | NUR ---
Opening Shift Note Assumed care of patient, patient awake and alert laying in bed. No S/S of distress/SOB. Pain in abdomen 05/01. Bed is in lowest position, wheels are locked, side rails up x2, and call light is within reach. Instructed on POC and to call for assist PRN, will continue to monitor for changes Q1hr and PRN.
[2018-04-07 08:39] VITALS: BP 98/52
--- NOTE | 2018-04-07 09:05 | NUR ---
Report Given Patient awake and alert. No S/S of distress/SOB. Pain still remain at 3/10 in abdomen. Patient stating pain is tolerable at this time. report given and care endorsed to Nuria CONNORS.
[2018-04-07 13:00] VITALS: BP 110/63
[2018-04-07] MEDS: SODIUM CHLORIDE 0.9% 1,000 ML IV SCH ×2 (14:41→23:26)
[2018-04-07] MEDS: PROMETHAZINE HCL 25 MG/ML 1ML IV PRN ×2 (16:03→23:51)
[2018-04-07 17:00] VITALS: BP 103/58
[2018-04-07 22:56] VITALS: BP 126/67
--- NOTE | 2018-04-08 01:05 | NUR ---
Opening Shift Note Assumed care of patient, awake and alert x4. Respirations even and unlabored. No S/S of distress or SOB on room air. Denies need for pain medication at this time pain reported 05/01. Bed locked in lowest position call light within reach. Instructed on POC and to call for assist PRN, will continue to monitor for changes Q1hr and PRN. Addendum: 04/08/18 at 0106 by MAG MONTEZ RN wrong date and time CORRECT DATE AND TIME 04/07/18 AT 1930
[2018-04-08 05:05] VITALS: BP 97/49
[2018-04-08] MEDS: methylPREDNISolone SOD SUCC 40 MG/ML VL IV SCH ×3 (06:51→22:03)
[2018-04-08] MEDS: MESALAMINE 400mg Delayed Release Cap PO SCH ×3 (06:51→22:03)
[2018-04-08] MEDS: SODIUM CHLORIDE 0.9% 1,000 ML IV SCH ×2 (07:00→23:13)
[2018-04-08 09:00] VITALS: BP_SYST 132; BP_SYST 136; BP_DIAS 68; BP_DIAS 74
[2018-04-08] MEDS: PROMETHAZINE HCL 25 MG/ML 1ML IV PRN ×4 (09:38→23:13)
[2018-04-08] MEDS: MORPHINE SULFATE 4 MG/ML SYR/VIAL IV PRN ×5 (09:38→23:12)
[2018-04-08 13:00] VITALS: BP 110/66
--- NOTE | 2018-04-08 15:54 | NUR ---
REQUESTING CLARIFICATION OF REMICADE ORDER TO DETERMINE COST AND REQUEST AUTHORIZATION.
--- NOTE | 2018-04-08 16:39 | NUR ---
SINUS TACH PATIENT HR TACHY AT 150 UPON AMBULATION PER MUD ANALYSIS OPERATOR.
--- NOTE | 2018-04-08 16:40 | NUR ---
IV D/C PATIENT COMPLAING ABOUTDISCOMFORT WITH CATHETER OF IV IN RIGHT A..C. D/C IV, AND PLACED NEW IV IN LEFT FOREARM 22G WELL TOLERATED
[2018-04-08 17:00] VITALS: BP 115/67
--- NOTE | 2018-04-08 19:45 | NUR ---
OPENING SHIFT NOTE RECEIVED REPORT FROM DAYSHIFT RN. PATIENT RESTING COMFORTABLY IN BED WATCHING TELEVISION. NO S/S OF DISTRESS OR SOB. NO PAIN NOTED OR REPORTED AT THIS TIME. PATIENT A/O X4. UPDATED PATIENT ON POC, VERBALIZED UNDERSTANDING. BED LOCKED IN LOW POSITION, CALL LIGHT WITHIN REACH. WILL CONTINUE TO MONITOR PATIENT Q1HR AND PRN.
[2018-04-08] MEDS: HYDROcodone-ACET 5/325MG TAB PO PRN (20:54)
[2018-04-08 21:28] VITALS: BP 108/56
[2018-04-09] MEDS: PROMETHAZINE HCL 25 MG/ML 1ML IV PRN ×4 (03:55→22:00)
[2018-04-09] MEDS: MORPHINE SULFATE 4 MG/ML SYR/VIAL IV PRN ×4 (03:55→22:01)
[2018-04-09 05:00] VITALS: BP 103/51
[2018-04-09] MEDS: MESALAMINE 400mg Delayed Release Cap PO SCH ×3 (05:41→21:59)
[2018-04-09] MEDS: methylPREDNISolone SOD SUCC 40 MG/ML VL IV SCH ×3 (05:41→21:58)
[2018-04-09 06:34] LABS: Basophils # (auto) 0 uL; Basophils % (auto) 0.1 % (0.0-2.0); Eosinophils # (auto) 0 uL; Lymphocytes # (auto) 0.7 uL; Monocytes # (auto) 0.5 uL
[2018-04-09 06:37] LABS: Hematocrit 27.3 % (41.0-53.0); Lymphocytes % (auto) 9.2 % (10.0-50.0); Mean Corpuscular Hemoglobin 26.3 pg (28.0-32.0); Mean Corpuscular Volume 79.8 fL (80.0-100.0); Monocytes % (auto) 5.9 % (0.0-12.0); Neutrophils # (auto) 6.5 uL; Neutrophils % (auto) 84.8 % (37.0-80.0); Platelet Count (auto) 376 10^3/uL (140-450); Red Blood Cells 3.42 10^6/uL (4.5-5.90); Red Cell Distribution Width 16.3 % (11.8-14.3); White Blood Cell 7.7 10^3/uL (4.4-10.8)
[2018-04-09 06:50] LABS: BUN/Creatinine Ratio 15.8; Calcium 7.4 mg/dL (8.5-10.1); Potassium 3.9 mmol/L (3.5-5.1)
[2018-04-09] MEDS: SODIUM CHLORIDE 0.9% 1,000 ML IV SCH ×3 (07:01→20:24)
--- NOTE | 2018-04-09 08:00 | NUR ---
Opening Shift Note Assumed care of patient, awake, alert and oriented X4. No S/S of distress/SOB or pain. Tele# 9, sinus bradycardia @ 57 bpm. IV to left forearm, 22 gauge, patent and infusing 0.9% NS @ 100 ml/hr. Instructed on POC and to call for assist PRN, verbalized understanding. , Bed locked, in lowest position, call light within reach, fall precautions in place, will continue to monitor for changes Q1hr and PRN.
[2018-04-09 09:15] VITALS: BP 107/59
[2018-04-09 12:24] VITALS: BP 110/64
--- NOTE | 2018-04-09 15:33 | NUR ---
ROUNDS Dr Reddy at bedside for rounds, new orders received and followed through. Patient updated on plan of care, verbalized understanding.
[2018-04-09 16:17] VITALS: BP 102/70
--- NOTE | 2018-04-09 19:21 | NUR ---
Care endorsed to WAYLON Moise, night nurse.
--- NOTE | 2018-04-09 19:30 | NUR ---
Opening Shift Note Assumed care of patient, awake and alert sitting in Manuel's position in bed watching TV. No S/S of distress/SOB. Insructed on POC and to call for assist PRN, will continue to monitor for changes PRN. Discussed diet, sensitivity of HR to his activity. Warned pt not to "be up cleaning and straightening room" as prev during day as HR reported to have increased to 150s - 170. Pt agreed with plan of care. Pt asking if can received [place] for relief of pain in abd. Will administer.
[2018-04-09] MEDS: HYDROcodone-ACET 5/325MG TAB PO PRN (20:06)
--- NOTE | 2018-04-09 20:49 | NUR ---
Pt up to BR, HR in 150s. Pt suellen well; no dizziness, lightheadedness. Experiencing diarrhea. Hydrocodone 5/325 i po given at 2005 for c/o abd cramping not controlled by morphine earlier.
[2018-04-09 22:00] VITALS: BP 111/59
[2018-04-10] MEDS: PROMETHAZINE HCL 25 MG/ML 1ML IV PRN ×5 (03:20→21:50)
[2018-04-10] MEDS: MORPHINE SULFATE 4 MG/ML SYR/VIAL IV PRN ×5 (03:20→21:49)
--- NOTE | 2018-04-10 03:21 | NUR ---
Morphine and phenergan given as ordered for pain and nausea. At this time pt receiving phenergan to "calm the cramping" and avoid nausea. Less diarrhea tonight, formed but 'in chunks'.
[2018-04-10 05:00] VITALS: BP 108/60
[2018-04-10] MEDS: MESALAMINE 400mg Delayed Release Cap PO SCH ×3 (06:15→21:49)
[2018-04-10] MEDS: methylPREDNISolone SOD SUCC 40 MG/ML VL IV SCH ×3 (06:15→21:50)
[2018-04-10] MEDS: SODIUM CHLORIDE 0.9% 1,000 ML IV SCH ×2 (06:23→23:40)
[2018-04-10 06:37] LABS: Basophils # (auto) 0 uL; Eosinophils # (auto) 0 uL; Hemoglobin 9.6 g/dL (13.5-17.5); Lymphocytes # (auto) 0.8 uL; Lymphocytes % (auto) 9.4 % (10.0-50.0); Monocytes # (auto) 0.5 uL; Neutrophils # (auto) 7.1 uL
[2018-04-10 06:40] LABS: Basophils % (auto) 0.1 % (0.0-2.0); Eosinophils % (auto) 0.1 % (0.0-7.0); Hematocrit 29.1 % (41.0-53.0); Mean Corpuscular Hemoglobin 26.3 pg (28.0-32.0); Mean Corpuscular Hgb Conc. 32.8 g/dL (32.0-36.0); Monocytes % (auto) 5.6 % (0.0-12.0); Neutrophils % (auto) 84.8 % (37.0-80.0); Nucleated Red Blood Cells % 0.1 %; Platelet Count (auto) 412 10^3/uL (140-450); Red Blood Cells 3.64 10^6/uL (4.5-5.90); Red Cell Distribution Width 16.7 % (11.8-14.3); White Blood Cell 8.3 10^3/uL (4.4-10.8)
[2018-04-10 06:59] LABS: Calcium 7.5 mg/dL (8.5-10.1); Potassium 4.1 mmol/L (3.5-5.1)
--- NOTE | 2018-04-10 08:00 | NUR ---
Opening Shift Note Assumed care of patient, awake, alert and oriented X4. No S/S of distress/SOB, complains of abdominal pain and cramping 6/10, Ramírez Ramires scale, medicated with prescribed medication. Tele#9, sinus bradycardia @ 56 bpm. IV to left antecubital, 22 gauge, patent and infusing 0.9% NS @ 100 ml/hr. Instructed on POC and to call for assist PRN, verbalized understanding. Fall precautions in place, will continue to monitor for changes Q1hr and PRN.
[2018-04-10 08:40] VITALS: BP 109/62
[2018-04-10 12:46] VITALS: BP 122/75
--- NOTE | 2018-04-10 15:41 | NUR ---
ROUNDS Dr Reddy at the bedside for rounds, new orders received and followed through. Patient updated on plan of care, verbalized understanding.
[2018-04-10] MEDS: HYDROcodone-ACET 5/325MG TAB PO PRN (16:33)
[2018-04-10 17:03] VITALS: BP 123/63
--- NOTE | 2018-04-10 19:09 | NUR ---
Care endorsed to WAYLON Hutchison, night nurse.
--- NOTE | 2018-04-10 19:30 | NUR ---
received pt from day rn poc reviewed
--- NOTE | 2018-04-10 20:46 | NUR ---
pt up to bathroom tele monitor called and stated that pts hr is st 160-170
[2018-04-10 22:00] VITALS: BP 112/62
[2018-04-11] MEDS: HYDROcodone-ACET 5/325MG TAB PO PRN (00:09)
[2018-04-11] MEDS: PROMETHAZINE HCL 25 MG/ML 1ML IV PRN ×3 (03:03→12:09)
[2018-04-11] MEDS: MORPHINE SULFATE 4 MG/ML SYR/VIAL IV PRN ×3 (03:07→12:09)
[2018-04-11 05:00] VITALS: BP 108/60
[2018-04-11] MEDS: MESALAMINE 400mg Delayed Release Cap PO SCH ×2 (06:00→13:55)
[2018-04-11 07:02] LABS: Basophils # (auto) 0 uL; Eosinophils # (auto) 0 uL; Lymphocytes # (auto) 0.8 uL; Mean Corpuscular Hemoglobin 26.1 pg (28.0-32.0); Monocytes # (auto) 0.5 uL; Nucleated Red Blood Cells % 0.1 %; Red Cell Distribution Width 16.7 % (11.8-14.3)
[2018-04-11 07:04] LABS: Eosinophils % (auto) 0.1 % (0.0-7.0); Hematocrit 27.1 % (41.0-53.0); Hemoglobin 8.8 g/dL (13.5-17.5); Lymphocytes % (auto) 11.7 % (10.0-50.0); Mean Corpuscular Hgb Conc. 32.4 g/dL (32.0-36.0); Mean Corpuscular Volume 80.4 fL (80.0-100.0); Monocytes % (auto) 7.7 % (0.0-12.0); Neutrophils # (auto) 5.6 uL; Neutrophils % (auto) 80.5 % (37.0-80.0); Platelet Count (auto) 377 10^3/uL (140-450); Red Blood Cells 3.37 10^6/uL (4.5-5.90)
[2018-04-11 07:06] LABS: Calcium 7.1 mg/dL (8.5-10.1); Potassium 4.1 mmol/L (3.5-5.1)
[2018-04-11] MEDS: methylPREDNISolone SOD SUCC 40 MG/ML VL IV SCH ×2 (07:13→13:55)
[2018-04-11 09:00] VITALS: BP_SYST 110; BP_SYST 124; BP_DIAS 63; BP_DIAS 73
--- NOTE | 2018-04-11 09:40 | NUR ---
[place] REPORTS PT HR 181. ASSESSED PT. PT RESTING IN BED NO DISTRESS NOTED. PT REPORTS HE GOT UP TO CLEAN A LITTLE. PT REPORTS HIS HR DOES "GO UP," WHEN HE GETS UP. RECEIVED IN REPORT FROM ANALYSIS EVALUATOR PT GOES UP TO 160'S WHEN HE AMBULATES AND MD ALREADY AWARE. CHARGE NURSE ASSESSED PT, NO DISTRESS NOTED. NO CHEST PAIN REPORTED BY PATIENT, WILL CONTINUE TO MONITOR.
[2018-04-11] MEDS: SODIUM CHLORIDE 0.9% 1,000 ML IV SCH (12:08)
[2018-04-11 13:00] VITALS: BP 112/65
--- NOTE | 2018-04-11 14:00 | NUR ---
SPOKE WITH DR. TAPIA, PT IS DISCHARGED. MD NOTIFIED PT HR RUNS TACHYCARDIC, WITH ACTIVITY PT HR RUNS FROM 150'S TO 180'S. NOTIFIED. NO NEW ORDERS
[2018-04-11 14:22] VITALS: BP 112/65
--- NOTE | 2018-04-11 16:00 | NUR ---
Discharge instructions given as ordered. Encourage to follow up with PMD as instructed. All questions and concerns addressed. Patient verbalized understanding. Patient to follow up with Dr. Robin at 0830 in morning at [facility]. Medication reconciliation form completed and copy given to patient. IV removed with catheter intact, pressure dressing applied. Telemetry unit returned to ICU. Patient taken to vehicle via wheelchair with all personal belongings, accompanied by staff and significant other. No distress noted at time of departure.
== END 2018-04-11 16:00 | disposition home or self-care (01) | DRG 385 ==
LOC: ER 09:13 → TELE 12:42 → TELE-WESTW 20:05
PROVIDERS: ADMIT Internal Medicine; ATTEND Internal Medicine
PROC: 0DJD8ZZ Inspection of Lower Intestinal Tract, Via Natural or Artificial Opening Endoscopic (ICD-10-PCS; principal; 2018-04-05 12:45)
DX: K51.90 Ulcerative colitis, unspecified, without complications (principal); E43 Unspecified severe protein-calorie malnutrition; M48.54XA Collapsed vertebra, not elsewhere classified, thoracic region, initial encounter for fracture; Z68.1 Body mass index [BMI] 19.9 or less, adult; D64.9 Anemia, unspecified; E86.9 Volume depletion, unspecified; R79.89 Other specified abnormal findings of blood chemistry; Z87.01 Personal history of pneumonia (recurrent); E86.0 Dehydration; Z91.010 Allergy to peanuts; Z91.018 Allergy to other foods
CPT/HCPCS: 36415; 45378; 71250; 74176; 80048; 80053; 81001; 83605; 85025; 85610; 85730; 87040; 87081; 87493; 96361; 96374; 96375; G0378; J2250

== ENCOUNTER → 2018-04-15 | Outpatient (CLI) | payer OTHER ==
[~2018-04-15] MED LIST changes: +HYDR-4683 PO
[2018-04-15 15:45] LABS: Basophils # (auto) 0 uL; Eosinophils # (auto) 0.1 uL; Eosinophils % (auto) 0.6 % (0.0-7.0); Lymphocytes % (auto) 8.5 % (10.0-50.0); Monocytes # (auto) 1.3 uL; Nucleated Red Blood Cells % 0.1 %
[2018-04-15 15:47] LABS: Basophils % (auto) 0.3 % (0.0-2.0); Hematocrit 30.8 % (41.0-53.0); Hemoglobin 9.9 g/dL (13.5-17.5); Lymphocytes # (auto) 0.8 uL; Mean Corpuscular Hemoglobin 26.4 pg (28.0-32.0); Mean Corpuscular Hgb Conc. 32.1 g/dL (32.0-36.0); Mean Corpuscular Volume 82.3 fL (80.0-100.0); Monocytes % (auto) 12.9 % (0.0-12.0); Neutrophils # (auto) 7.7 uL; Neutrophils % (auto) 77.7 % (37.0-80.0); Platelet Count (auto) 408 10^3/uL (140-450); Red Blood Cells 3.74 10^6/uL (4.5-5.90); Red Cell Distribution Width 17.8 % (11.8-14.3); White Blood Cell 9.9 10^3/uL (4.4-10.8)
== END | disposition home or self-care (01) ==
LOC: LAB 15:33
PROVIDERS: ATTEND Internal Medicine Gastroenterology
DX: R10.9 Unspecified abdominal pain (principal)
CPT/HCPCS: 36415; 85025

== ENCOUNTER → 2018-04-25 | Outpatient (CLI) | payer OTHER ==
[2018-04-25 10:08] LABS: Basophils # (auto) 0 uL; Eosinophils # (auto) 0.1 uL; Eosinophils % (auto) 1.2 % (0.0-7.0); Hematocrit 31.9 % (41.0-53.0); Hemoglobin 9.8 g/dL (13.5-17.5); Lymphocytes # (auto) 1.7 uL; Lymphocytes % (auto) 22.8 % (10.0-50.0); Mean Corpuscular Hemoglobin 25.5 pg (28.0-32.0); Mean Corpuscular Hgb Conc. 30.8 g/dL (32.0-36.0); Mean Corpuscular Volume 82.8 fL (80.0-100.0); Monocytes # (auto) 0.7 uL; Monocytes % (auto) 9.1 % (0.0-12.0); Neutrophils % (auto) 66.9 % (37.0-80.0); Platelet Count (auto) 359 10^3/uL (140-450); Red Blood Cells 3.85 10^6/uL (4.5-5.90); Red Cell Distribution Width 18.7 % (11.8-14.3); White Blood Cell 7.5 10^3/uL (4.4-10.8)
== END | disposition home or self-care (01) ==
LOC: LAB 09:33
PROVIDERS: ATTEND Internal Medicine Gastroenterology
DX: K51.90 Ulcerative colitis, unspecified, without complications (principal)
CPT/HCPCS: 36415; 85025

== ENCOUNTER → 2018-09-12 | Outpatient (CLI) | payer OTHER ==
[~2018-09-12] MED LIST changes: -HYDR-4683 PO; +HYDR-4833 PO
== END | disposition home or self-care (01) ==
LOC: LAB 08:10
PROVIDERS: ATTEND Internal Medicine Gastroenterology
DX: K51.00 Ulcerative (chronic) pancolitis without complications (principal)
CPT/HCPCS: 87045; 87493; 87899

== ENCOUNTER → 2019-03-23 | Outpatient (CLI) | payer OTHER ==
[2019-03-23 09:35] LABS: Basophils # (auto) 0.1 uL; Basophils % (auto) 1.1 % (0.0-2.0); Eosinophils # (auto) 0.3 uL; Lymphocytes # (auto) 1.2 uL; Neutrophils # (auto) 3.9 uL; Neutrophils % (auto) 59.9 % (37.0-80.0); Red Cell Distribution Width 19.5 % (11.8-14.3); White Blood Cell 6.5 10^3/uL (4.4-10.8)
[2019-03-23 09:36] LABS: Hemoglobin 12.7 g/dL (13.5-17.5); Mean Corpuscular Hemoglobin 23.6 pg (28.0-32.0); Platelet Count (auto) 397 10^3/uL (140-450)
[2019-03-23 09:48] LABS: Albumin 3.1 g/dL (3.4-5.0); Calcium 8.8 mg/dL (8.5-10.1); Potassium 4.1 mmol/L (3.5-5.1)
[2019-03-23 09:51] LABS: BUN/Creatinine Ratio 13.3; Bilirubin, Total 0.6 mg/dL (0.2-1.0); Total Protein 6.9 g/dL (6.4-8.2)
== END | disposition home or self-care (01) ==
LOC: LAB 09:23
PROVIDERS: ATTEND Internal Medicine Gastroenterology
DX: K51.00 Ulcerative (chronic) pancolitis without complications (principal)
CPT/HCPCS: 36415; 80053; 85025